=== PATIENT | male | born 1950 | race Caucasian/White ===

== ENCOUNTER → 2016-10-14 | Outpatient (CLI) | payer OTHER ==
[~2016-10-14] MED LIST: DEPO METHYLPREDNISOLONE 40 MG/ML SDV ONE; DEPO METHYLPREDNISOLONE 80 MG/ML SDV ONE; IOPAMIDOL (ISOVUE-300) 50 ML VIAL IV ONE; IOPAMIDOL (ISOVUE-370) 150 ML BTL IV ONE; LIDOCAINE 1% 30 ML SDV ONE; NA BICARBONATE 50 MEQ/50 ML VIAL ONE; ROPIVACAINE HCL 150 MG/30 ML INJ ONE
== END ==
LOC: FIMAGING 13:10
PROVIDERS: ATTEND Orthopaedic Surgery
PROC: 3E0U33Z Introduction of Anti-inflammatory into Joints, Percutaneous Approach (ICD-10-PCS; principal; 2016-10-14)
PROC: 3E0U3BZ Introduction of Anesthetic Agent into Joints, Percutaneous Approach (ICD-10-PCS; principal; 2016-10-14)
DX: M25.551 Pain in right hip (principal)
CPT/HCPCS: J1020; J2795; Q9967